=== PATIENT | male | born 2000 | race Two or more races ===

== ENCOUNTER 2018-03-29 14:48 | Emergency (ER) | payer SELFPAY ==
[~2018-03-29] VITALS: Ht 170.2 cm; Wt 72.6 kg
[2018-03-29 17:37] VITALS: BP 128/72
== END 2018-03-29 17:54 | disposition home or self-care (01) ==
LOC: ER 14:48
DX: S09.90XA Unspecified injury of head, initial encounter (principal); V03.90XA Pedestrian on foot injured in collision with car, pick-up truck or van, unspecified whether traffic or nontraffic accident, initial encounter; Y93.89 Activity, other specified; Y99.8 Other external cause status; Y92.89 Other specified places as the place of occurrence of the external cause
CPT/HCPCS: 70450